=== PATIENT | male | born 1960 | race American Indian/Alaskan Native ===

== ENCOUNTER 2016-10-13 12:52 | Emergency (ER) | payer OTHER ==
[2016-10-13 14:37] VITALS: BP 130/85
--- NOTE | 2016-10-13 18:35 | Emergency Department Report ---
ED ENT HPI - General Chief complaint: Earache Stated complaint: EAR STOPPED UP Time Seen by Provider: 10/13/16 17:10 Source: patient Mode of arrival: Ambulatory Limitations: No Limitations - History of Present Illness Initial comments: Patient here reports that his right ear is stopped up. Denies any pain or difficulty hearing. Denies any congestion or cough. This is been going on for the last week. Denies fever or chills. MD complaint: other (Rt ear clogged) Onset/Timin -: week(s) Location: R ear Severity scale (0 -10): 0 Context- Ear: other (clogged) Associated Symptoms: denies: fever, cough, gum swelling, toothache, pain with swallowing, sore throat, tinnitus, hearing loss, discharge from ear, rhinorrhea - Related Data Previous Rx's Medication Instructions Recorded Last Taken Type Carbamide Peroxide [Earwax 15 ml OTIC ONCE PRN #1 bottle 10/13/16 Unknown Rx Treatment] Ibuprofen [Motrin] 600 mg PO Q8H PRN #15 tablet 10/13/16 Unknown Rx ED Dental HPI - General Chief complaint: Earache Stated complaint: EAR STOPPED UP Time Seen by Provider: 10/13/16 17:10 Source: patient Mode of arrival: Ambulatory Limitations: No Limitations - Related Data Previous Rx's Medication Instructions Recorded Last Taken Type Carbamide Peroxide [Earwax 15 ml OTIC ONCE PRN #1 bottle 10/13/16 Unknown Rx Treatment] Ibuprofen [Motrin] 600 mg PO Q8H PRN #15 tablet 10/13/16 Unknown Rx ED Review of Systems ROS: Stated complaint: EAR STOPPED UP Other details as noted in HPI Comment: All other systems reviewed and negative Constitutional: denies: chills, fever ENT: other (clogged RT ear). denies: ear pain, throat pain, congestion Respiratory: no symptoms reported Cardiovascular: denies: chest pain, palpitations, edema, syncope Gastrointestinal: denies: abdominal pain, nausea, vomiting Musculoskeletal: denies: back pain, arthralgia Skin: denies: rash Neurological: denies: headache ED Past Medical Hx - Past Medical History Previous Medical History?: No - Surgical History Past Surgical History?: No - Family History Family history: no significant - Social History Smoking Status: Current Every Day Smoker Substance Use Type: Alcohol - Medications Home Medications: Home Medications Medication Instructions Recorded Confirmed Last Taken Type Carbamide Peroxide [Earwax 15 ml OTIC ONCE PRN #1 bottle 10/13/16 Unknown Rx Treatment] Ibuprofen [Motrin] 600 mg PO Q8H PRN #15 tablet 10/13/16 Unknown Rx ED Physical Exam - General Limitations: No Limitations General appearance: alert, in no apparent distress - Head Head exam: Present: atraumatic, normocephalic, normal inspection - Eye Eye exam: Present: normal appearance, PERRL, EOMI. Absent: periorbital swelling , periorbital tenderness Pupils: Present: normal accommodation - ENT ENT exam: Present: normal exam, normal orophraynx, mucous membranes moist, normal external ear exam, other (right ear cerumen impaction). Absent: TM's normal bilaterally - Expanded ENT Exam Expanded TM/Canal exam: Cerumen Impaction: Right TM Mouth exam: Present: normal external inspection. Absent: drooling, trismus, muffled voice, tongue normal, tongue elevation, laceration Teeth exam: Present: normal inspection Throat exam: Negative: normal inspection, tonsillar erythema, tonsillomegaly, tonsillar exudate, R peritonsillar mass, L peritonsillar mass - Neck Neck exam: Present: normal inspection, full ROM. Absent: tenderness, meningismus, lymphadenopathy - Respiratory Respiratory exam: Present: normal lung sounds bilaterally. Absent: chest wall tenderness - Cardiovascular Cardiovascular Exam: Present: regular rate, normal rhythm, normal heart sounds - Extremities Exam Extremities exam: Present: normal inspection, full ROM, normal capillary refill. Absent: tenderness, pedal edema - Neurological Exam Neurological exam: Present: alert, oriented X3, normal gait - Psychiatric Psychiatric exam: Present: normal affect, normal mood - Skin Skin exam: Present: warm, dry, intact, normal color. Absent: rash ED Course Vital Signs 10/13/16 14:35 Temperature 97.8 F Pulse Rate 66 Blood Pressure 130/85 O2 Sat by Pulse 99 Oximetry - Reevaluation(s) Reevaluation #1: 10/13/16 18:54 Procedure note for cerumen impaction - Ear Wax Removal Right Ear Cerumenolytic Used: Other (plastical l;oop) Ear Canal Irrigated by: other (EQUITY HOLDER-C) Ear Canal Irrigated With: other (Plastic loop) Ear Canal(s) Curettaged: plastic loops Results: Re-examined: cerumen removed completel TM Visible: TM(s) intact, normal appe Ear Canal: bleeding Noted (some bleeding to rt eac after procedure/minimal) Complications: bleeding (minimal to RT EAC) ED Medical Decision Making - Medical Decision Making ED course: She will right ear cerumen impaction. Seizure note for detail on cerumen removal. Pt discharged home in stable condition with prescription for detox and Motrin. Minimal amount of bleeding after procedure with subsided. Patient discharged home to follow-up with primary care physician in 3-4 days. Given prescription for debrox Critical care attestation.: If time is entered above; I have spent that time in minutes in the direct care of this critically ill patient, excluding procedure time. ED Disposition Clinical Impression: Cerumen impaction Qualifiers: Laterality: right Qualified Code(s): H61.21 - Impacted cerumen, right ear Clogged ear Qualifiers: Laterality: right Qualified Code(s): H93.8X1 - Other specified disorders of right ear Disposition: DISCHARGED TO HOME OR SELFCARE Is pt being admited?: No Does the pt Need Aspirin: No Condition: Stable Instructions: Carbamide Peroxide (Into the ear), Cerumen Impaction (ED) Prescriptions: Carbamide Peroxide [Earwax Treatment] 15 ml OTIC ONCE PRN #1 bottle PRN Reason: CERUMEN IMPACTION Ibuprofen [Motrin] 600 mg PO Q8H PRN #15 tablet PRN Reason: Pain Referrals: PRIMARY CARE, [Primary Care Provider] - 2-3 Days Forms: Work/School Release Form(ED)
== END 2016-10-13 19:44 | disposition home or self-care (01) ==
LOC: ED 12:52
DX: H61.21 Impacted cerumen, right ear (principal); H93.8X1 Other specified disorders of right ear; F17.200 Nicotine dependence, unspecified, uncomplicated

== ENCOUNTER 2018-12-17 20:30 | Emergency (ER) | payer OTHER ==
[2018-12-17 20:50] VITALS: BP 138/79
--- NOTE | 2018-12-17 22:28 | Emergency Department Report ---
Blank Doc - Documentation Documentation: Fell a couple weeks ago and reports hitting rt facial area . He report since f all blurred vision to rt eye. denies FLORES . Saw PCP and was told he was alright. PCP: Gabriela Wallace. Non toxic in appearance VSS, afeb
== END 2018-12-17 22:30 | disposition left against medical advice (07) ==
LOC: ED 20:30
DX: H57.11 Ocular pain, right eye (principal); Z53.21 Procedure and treatment not carried out due to patient leaving prior to being seen by health care provider